=== PATIENT | male | born 1975 | race Caucasian/White ===

== ENCOUNTER 2020-06-17 10:49 | Emergency (ER) | payer OTHER ==
[~2020-06-17] VITALS: Ht 177.8 cm; Wt 81.6 kg
[2020-06-17 10:57] VITALS: BP 110/73
--- NOTE | 2020-06-17 10:57 | NUR ---
ED Nurse Note: Pt BIBRodrigo [id number] from home c/o syncope, unwitnessed lasted for unk time. Pt AAOx4, verbally responsive. Noted with laceration on posterior head with controlled bleeding. Pt also c/o right hip pain, possible fracture. Right leg appears to be shorter than the left leg. Per EMS, pt admits drinking alcohol. IV line on right AC 18g patent and intact, inserted by EMS. No SOB, on room air. Pt placed on welfare adviser. ERMD at bedside.
--- NOTE | 2020-06-17 10:59 | Emergency Room Report ---
History of Present Illness General Chief Complaint: Syncope Source: EMS Present Illness HPI Disclaimer: Please note that this report is being documented using DRAGON technology. This can lead to erroneous entry secondary to incorrect interpretation by the dictating instrument. HPI: 45-year-old male presents for evaluation after loss of consciousness head injury. Patient states he was in a stressful situation with his landlord this morning got up to make himself a drink and had a alcoholic drink prior. They walked into the kitchen after which she has no recollection of the events. He woke up on the ground. Blood noted coming out of the back of his head. Right hip pain unable to stand. Called 911. Found awake and alert. Denying preceding chest pain, palpitations, shortness of breath. Denies regular alcohol use. Denies alcohol withdrawal seizures or dependency. Denies drug use. No prior history of syncope. Denies cardiac history and denies any current chest pain, palpitations, shortness of breath, lightheadedness, nausea, vomiting, diarrhea or recent illness. Does not take anticoagulants. Tetanus updated 3 months ago PMH: Denied PSH: Peptic ulcer resection Allergies: Reviewed Social Hx: Social alcohol use Allergies: Coded Allergies: No Known Allergies (Unverified , 06/17/20) COVID-19 Screening Contact w/high risk pt: No Experienced COVID-19 symptoms?: No COVID-19 Testing performed SERVICES MGR: No Nursing Documentation-PMH Past Medical History: No Stated History Review of Systems All Other Systems: negative except mentioned in HPI Physical Exam Vital Signs Date Time Temp Pulse Resp B/P (MAP) Pulse Ox O2 Delivery O2 Flow Rate FiO2 06/17/20 10:44 98.4 85 17 110/73 (85) 98 Room Air General: Awake and alert, no acute distress HEENT: Normocephalic, scalp abrasion over right occiput. There are no face hematomas, lacerations or abrasions. No tenderness or soft tissue swelling over the facial bones. EOMI. PERRLA. No septal hematoma. No oral lacerations. Dentition is intact. No malocclusion Neck: Supple, trachea midline. Arrives without cervical collar Chest Wall: No tenderness, no deformity, no crepitus CV: RRR. S1 and S2 normal. No murmur appreciated Resp: Normal work of breathing. No cough, wheezing or crackles appreciated Abd: Soft, nontender, nondistended Skin: Scalp abrasion over the right occiput. Approximately 0.5 cm. Does not require closure. MSK: Normal tone and bulk. No obvious deformity. Right leg has palpable deformity over the right pelvis and right leg is shortened and externally rotated. Neuro: Awake and alert. Mentating appropriately. Sensation is intact to light touch over the dermatomes of the upper and lower extremities Spine: There is no tenderness, step-off or deformity in the cervical, thoracic or lumbosacral spine. Medical Decision Making Diagnostic Impression: Primary Impression: Syncope Additional Impressions: Scalp laceration Intertrochanteric fracture of right hip Elevated LFTs ER Course 45-year-old male presents for evaluation of loss of consciousness. Concern for syncope, seizure, dehydration, electrolyte abnormality, ACS, alcohol intoxication, alcohol withdrawal, intracranial injury, hip fracture, hip dislocation among others. Has a small scalp abrasion that is now hemostatic and does not require closure. CT scan of the head obtained does not show acute intracranial bleed. X-rays of the hip and pelvis concerning for right intertrochanteric fracture with impaction. Does not appear to involve the femoral neck. LFTs elevated consistent with chronic alcohol abuse. No evidence of withdrawal, no tremors, heart rate within normal limits. Other labs unremark able. Patient accepted for transfer to [facility]. Dr. Parry accepting physician. Laboratory Tests Test 06/17/20 11:03 White Blood Count 12.6 K/UL (4.8-10.8) H Red Blood Count 3.69 M/UL (4.70-6.10) L Hemoglobin 12.2 G/DL (14.2-18.0) L Hematocrit 35.1 % (42.0-52.0) L Mean Corpuscular Volume 95 FL (80-99) Mean Corpuscular Hemoglobin 33.0 PG (27.0-31.0) H Mean Corpuscular Hemoglobin Concent 34.7 G/DL (32.0-36.0) Red Cell Distribution Width 12.8 % (11.6-14.8) Platelet Count 193 K/UL (150-450) Mean Platelet Volume 6.2 FL (6.5-10.1) L Neutrophils (%) (Auto) 84.5 % (45.0-75.0) H Lymphocytes (%) (Auto) 6.6 % (20.0-45.0) L Monocytes (%) (Auto) 8.0 % (1.0-10.0) Eosinophils (%) (Auto) 0.2 % (0.0-3.0) Basophils (%) (Auto) 0.8 % (0.0-2.0) Prothrombin Time 11.8 SEC (9.30-11.50) H Prothrombin Time INR 1.1 (0.9-1.1) Activated Partial Thromboplast Time 24 SEC (23-33) Sodium Level 133 MMOL/L (136-145) L Potassium Level 3.2 MMOL/L (3.5-5.1) L Chloride Level 96 MMOL/L (98-107) L Carbon Dioxide Level 23 MMOL/L (21-32) Anion Gap 14 mmol/L (5-15) Blood Urea Nitrogen 7 mg/dL (7-18) Creatinine 0.9 MG/DL (0.55-1.30) Estimated Glomerular Filtration Rate > 60 mL/min (>60) Glucose Level 169 MG/DL (74-106) H Calcium Level 8.4 MG/DL (8.5-10.1) L Total Bilirubin 1.5 MG/DL (0.2-1.0) H Direct Bilirubin 0.8 MG/DL (0.0-0.3) H Aspartate Amino Transferase (AST) 221 U/L (15-37) H Alanine Aminotransferase (ALT) 115 U/L (12-78) H Alkaline Phosphatase 284 U/L (46-116) H Troponin I 0.000 ng/mL (0.000-0.056) Total Protein 6.9 G/DL (6.4-8.2) Albumin 3.4 G/DL (3.4-5.0) Globulin 3.5 g/dL Albumin/Globulin Ratio 1.0 (1.0-2.7) Salicylates Level < 0.2 ug/mL (2.8-20) L Acetaminophen Level < 2 MCG/ML (10-30) L Serum Alcohol < 3 mg/dL EKG Diagnostic Results Troponin ordered: Yes When was troponin ordered?: Jun 17, 2020 EKG Time: 11:07 Rate: normal Rhythm: NSR ST Segments: no acute changes Other Impression Sinus rhythm, normal axis, normal intervals, no ST segment changes. QTC 452 ms Rhythm Strip Diag. Results Rhythm Strip Time: 11:07 EP Interpretation: yes Rate: 90s Rhythm: NSR, no PVC's, no ectopy Chest X-Ray Diagnostic Results Chest X-Ray Diagnostic Results : Chest X-Ray Ordered: Yes # of Views/Limited/Complete: 1 View Indication: Other - Syncope EP Interpretation: Yes Interpretation: no consolidation, no effusion, no pneumothorax, no acute cardiopulmonary disease Impression: No acute disease Electronically Signed by: Electronically signed by Dr. Marino Mendes MD Other X-Ray Diagnostic Results Other X-Ray Diagnostic Results : X-Ray ordered: Right hip and pelvis # of Views/Limited Vs Complete: Complete Indication: Pain EP Interpretation: Yes Interpretation: other - Comminuted right intertrochanteric fracture with impaction Impression: Other - Acute intertrochanteric fracture right femur CT/MRI/US Diagnostic Results CT/MRI/US Diagnostic Results : Impression Impression: Negative for acute intracranial bleed or mass effect Small right parietal scalp contusion The CT scanner at is accredited by the [employer] and the scans are performed using protocols designed to limit radiation exposure to as low as reasonably achievable to attain images of sufficient resolution adequate for diagnostic evaluation. Dictated By: Sea Banerjee MD Electronically Signed By:Sea Banerjee MD Signed Date/Time 06/17/20 1247 Last Vital Signs Date Time Temp Pulse Resp B/P (MAP) Pulse Ox O2 Delivery O2 Flow Rate FiO2 06/17/20 10:44 98.4 85 17 110/73 (85) 98 Room Air Disposition: SHORT-TERM HOSP Condition: Stable Scripts No Active Prescriptions or Reported Meds Marino Mendes MD Jun 17, 2020 10:59
[2020-06-17] MEDS ORDERED: Hydrogen Peroxide 473ml Bottle TOPIC ONE (11:00)
--- NOTE | 2020-06-17 11:15 | NUR ---
ED Nurse Note: Pt was taken to CT via eli, accompaneid by a tech.
[2020-06-17 11:45] LABS: BASOPHILS % (AUTO) 0.8 % (0.0-2.0); EOSINOPHILS % (AUTO) 0.2 % (0.0-3.0); HEMATOCRIT 35.1 % (42.0-52.0); HEMOGLOBIN 12.2 G/DL (14.2-18.0); LYMPHOCYTES % (AUTO) 6.6 % (20.0-45.0); MEAN CORPUSCULAR VOLUME 95 FL (80-99); NEUTROPHILS % (AUTO) 84.5 % (45.0-75.0); PLATELET COUNT 193 K/UL (150-450); RED BLOOD COUNT 3.69 M/UL (4.70-6.10); RED CELL DISTRIBUTION WIDTH 12.8 % (11.6-14.8); WHITE BLOOD COUNT 12.6 K/UL (4.8-10.8)
[2020-06-17] MEDS ORDERED: Morphine Sulfate 4mg/ml Inj (IV USE ONLY) IVP ONE ×3 (11:45→16:45)
--- NOTE | 2020-06-17 11:48 | NUR ---
ED Nurse Note: Pt returned from CT, not in any distress.
[2020-06-17 11:56] LABS: ANION GAP 14 mmol/L (5-15); BLOOD UREA NITROGEN 7 mg/dL (7-18); CALCIUM 8.4 MG/DL (8.5-10.1); CARBON DIOXIDE 23 MMOL/L (21-32); CHLORIDE 96 MMOL/L (98-107); CREATININE 0.9 MG/DL (0.55-1.30); POTASSIUM 3.2 MMOL/L (3.5-5.1); SODIUM 133 MMOL/L (136-145)
[2020-06-17 11:57] LABS: INR 1.1 (0.9-1.1)
--- NOTE | 2020-06-17 12:02 | NUR ---
ED Nurse Note: Xray at bedside.
[2020-06-17 12:08] LABS: ALANINE AMINOTRANSFERASE 115 U/L (12-78); ALBUMIN 3.4 G/DL (3.4-5.0); ALKALINE PHOSPHATASE 284 U/L (46-116); ASPARTATE AMINO TRANSFERASE 221 U/L (15-37); BILIRUBIN,DIRECT 0.8 MG/DL (0.0-0.3); BILIRUBIN,TOTAL 1.5 MG/DL (0.2-1.0)
--- NOTE | 2020-06-17 12:51 | Diagnostic Imaging Report ---
Indications: Loss of consciousness, head injury Technique: Spiral acquisitions obtained through the brain. Angled axial and coronal 5 x 5 mm slices were reconstructed. Total dose length product 1045 mGycm. CTDI vol(s) 53 mGy. Dose reduction achieved using automated exposure control Comparison: None. Findings: There is a right parietal small scalp contusion demonstrated. The ventricles and extra axial CSF spaces are slightly prominent for age. Normal tipton-white differentiation. No acute intracranial hemorrhage or edema, mass effect, nor midline shift. Visualized orbits are unremarkable. The calvarium is intact. The mastoids are clear. Impression: Negative for acute intracranial bleed or mass effect Small right parietal scalp contusion The CT scanner at [facility] is accredited by the [employer] and the scans are performed using protocols designed to limit radiation exposure to as low as reasonably achievable to attain images of sufficient resolution adequate for diagnostic evaluation.
--- NOTE | 2020-06-17 13:35 | NUR ---
ED Nurse Note: Pt unable to provide urine at this time.
[2020-06-17 14:14] VITALS: BP 120/76
--- NOTE | 2020-06-17 15:33 | NUR ---
ED Nurse Note: Report given to Jose A MONTGOMERY from [facility].
--- NOTE | 2020-06-17 15:42 | Diagnostic Imaging Report ---
Indication: Pain, status post fall Technique: One view of the pelvis, 2 views of the right hip Comparison: none Findings: There is a severely comminuted intertrochanteric fracture of the right hip. No associated pelvic fracture demonstrated. The left hip appears intact. The joint spaces are preserved Impression: Positive for right hip intertrochanteric fracture
[2020-06-17 16:26] VITALS: BP 113/77
[2020-06-17 17:00] VITALS: BP 113/77
--- NOTE | 2020-06-17 17:00 | NUR ---
TRANSFER Patient transferred to [facility] via [facility] picked up by 2 EMT. Pt AA0x4, verbally responsive. IV line on right AC 18g patent and intact. No skin issues. All belongings sent with the patient.
--- NOTE | 2020-06-17 17:15 | Diagnostic Imaging Report ---
Indication: Chest pain Technique: One view of the chest Comparison: none Findings: Lungs and pleural spaces are clear. Heart size is normal. Impression: No acute process
== END 2020-06-17 17:00 | disposition short-term general hospital (02) ==
LOC: EDBD 10:49 → EMR 12:36
DX: R55 Syncope and collapse (principal); S01.01XA Laceration without foreign body of scalp, initial encounter; S72.141A Displaced intertrochanteric fracture of right femur, initial encounter for closed fracture; W19.XXXA Unspecified fall, initial encounter; Y92.9 Unspecified place or not applicable; R79.89 Other specified abnormal findings of blood chemistry; Z20.828 Contact with and (suspected) exposure to other viral communicable diseases
CPT/HCPCS: 36415; 70450; 71045; 73501; 80053; 82248; 84484; 85025; 85610; 85730; 93005; 96361; 96374; 96376; G0480; G0481; J2270; J7030; U0002; Z7502; 99285